=== PATIENT | male | born 1985 | race American Indian/Alaskan Native ===

== ENCOUNTER 2016-09-23 14:10 | Outpatient (CLI) | payer OTHER ==
--- NOTE | 2016-09-23 15:43 | Mammography Report ---
LEFT DIGITAL DIAGNOSTIC MAMMOGRAM with CAD and LEFT BREAST ULTRASOUND: 09/23/16 14:10:00 CLINICAL: Recently diagnosed invasive ductal carcinoma of the right breast and status post recent right mastectomy. COMPARISON:None. FINDINGS: The breast is predominantly fatty with a moderate amount of retroareolar fibroglandular densities. The appearance is very similar to the retroareolar densities of the right breast identified on the recent postbiopsy right mammogram. No architectural distortion or suspicious calcifications. Ultrasound of the left breast (including all four quadrants and the retroareolar area) was performed and demonstrated normal fatty structures and a moderate amount of retroareolar fibroglandular densities with no mass. IMPRESSION: Moderate benign left gynecomastia. BI-RADS CATEGORY: 2 - - Benign RECOMMENDATION: Clinical followup. ACR BI-RADS MAMMOGRAPHIC CODES: 0 = Needs additional imaging evaluation; 1 = Negative; 2 = Benign; 3 = Probably benign; 4 = Suspicious; 5 = Malignant; 6 = Known biopsy-proven malignancy COMMENT: 1. Dense breast tissue, i.e., adenosis, fibrocystic changes, etc., may obscure an underlying neoplasm. 2. Approximately 10% of cancers are not detected with mammography. 3. A negative mammography report should not delay biopsy if a clinically suspicious mass is present. COMMENT: Patient follow-up letters are generated by our [employer] application.
== END 2016-09-23 14:11 | disposition home or self-care (01) ==
LOC: SPVWC 14:10
PROVIDERS: ATTEND Surgery
DX: C50.921 Malignant neoplasm of unspecified site of right male breast (principal); N62 Hypertrophy of breast; Z90.11 Acquired absence of right breast and nipple
CPT/HCPCS: 76641; G0206

== ENCOUNTER 2016-11-26 07:03 | Day surgery (SDC) | payer OTHER ==
[~2016-11-26 07:03] MED LIST: ANCEF/STERILE WATER 2 GM/20 ML IV NR
[2016-11-26] MEDS ORDERED: XYLOCAINE 1% 20 mL ONE (07:20)
[2016-11-26] MEDS ORDERED: MARCAINE 0.25% INFILTRATI ONE (07:20)
[2016-11-26] MEDS ORDERED: DIPRIVAN 10 MG/ML IV ONE ×3 (07:31→10:30)
[2016-11-26] MEDS ORDERED: DILAUDID ONE (07:31)
[2016-11-26] MEDS ORDERED: DECADRON ONE (07:33)
[2016-11-26] MEDS ORDERED: ROBINUL ONE (07:33)
[2016-11-26] MEDS ORDERED: XYLOCAINE MPF 2% ONE (07:33)
[2016-11-26] MEDS ORDERED: ZOFRAN ONE (07:33)
--- NOTE | 2016-11-26 07:48 | Anesthesia Consultation ---
Anesthesia Consult and Med Hx Date of service: 11/26/16 - Airway Anesthetic Teeth Evaluation: Good ROM Head & Neck: Adequate Mental/Hyoid Distance: Adequate Mallampati Class: Class II Intubation Access Assessment: Probably Good - Pulmonary Exam CTA: Yes - Cardiac Exam Cardiac Exam: RRR - Pre-Operative Health Status ASA Pre-Surgery Classification: ASA3 Proposed Anesthetic Plan: General - Pre-Anesthesia Comment Pre-Anesthesia Comments: R breast cancer - Pulmonary Hx Smoking: Yes (1-2 CIAGARS PER WEEK , MARIJUANA 3-4X WEEK.) Hx Asthma: No COPD: No Hx Pneumonia: No Hx Sleep Apnea: No (ISMAEL PRE SCREEN HIGH RISK.) - Cardiovascular System Hx Hypertension: No - Central Nervous System Hx Back Pain: Yes - Endocrine Hx End Stage Renal Disease: No - Other Systems Hx Substance Use: Yes (MARIJUANA 3-4 X PER WEEK) Hx Obesity: Yes
--- NOTE | 2016-11-26 07:48 | Anesthesia Day of Surgery ---
Anesthesia Day of Surgery - Day of Surgery Patient Examined: Yes Patient H&P Reviewed: Yes Patient is NPO: Yes
[2016-11-26] MEDS ORDERED: DILAUDID IV PRN (08:00)
[2016-11-26] MEDS ORDERED: PERCOCET 5/325 PO PRN (08:00)
[2016-11-26] MEDS ORDERED: ZOFRAN IV PRN (08:00)
[2016-11-26] MEDS ORDERED: LACTATED RINGERS 1,000 ML IV SCH (08:00)
[2016-11-26] MEDS ORDERED: PEPCID IV NR (08:00)
[2016-11-26] MEDS ORDERED: VERSED IV NR (08:00)
[2016-11-26] MEDS ORDERED: NACL BACTERIOSTATIC INFILTRATI ONE (08:09)
[2016-11-26] MEDS ORDERED: WATER FOR IRRIG STERILE IR ONE (09:07)
[2016-11-26] MEDS ORDERED: VERSED ONE (09:14)
[2016-11-26] MEDS ORDERED: QUELICIN ONE (09:39)
[2016-11-26] MEDS ORDERED: LACTATED RINGERS 1,000 ML ONE (09:57)
[2016-11-26] MEDS ORDERED: SUBLIMAZE ONE (10:10)
--- NOTE | 2016-11-26 11:00 | Short Stay Summary ---
Short Stay Documentation Date of service: 11/26/16 - History H&P: obtained from office - Allergies and Medications Current Medications: Allergies No Known Allergies Allergy (Verified 05/21/13 23:33) Home Medications Medication Instructions Recorded Confirmed Last Taken Type Tamoxifen Citrate 10 mg PO QDAY 11/21/16 11/21/16 Unknown History HYDROcodone/APAP 5-325 [[place] 1 each PO Q6HR PRN #30 tablet 11/26/16 Unknown Rx 5/325] Active Medications Cefazolin Sodium (Ancef/Sterile Water 2 Gm/20 Ml) 2 gm IV PREOP NR Stop: 11/26/16 23:00 Famotidine (Pepcid) 20 mg IV PREOP NR Stop: 11/26/16 21:00 Last Admin: 11/26/16 08:19 Dose: 20 mg Hydromorphone HCl (Dilaudid) 0.5 mg IV Q10MIN PRN PRN Reason: Pain , Severe (7-10) Stop: 11/26/16 18:00 Lactated Ringer's (Lactated Ringers) 1,000 mls @ 125 mls/hr IV DIRECT JEAN Last Admin: 11/26/16 08:29 Dose: 125 mls/hr Midazolam HCl (Versed) 2 mg IV PREOP NR Stop: 11/26/16 23:59 Last Admin: 11/26/16 08:19 Dose: 2 mg Ondansetron HCl (Zofran) 4 mg IV ONCE PRN PRN Reason: Nausea And Vomiting Stop: 11/26/16 21:00 Oxycodone/Acetaminophen (Percocet 5/325) 1 tab PO ONCE PRN PRN Reason: Pain, Moderate (4-6) Stop: 11/26/16 18:00 - Brief post op/procedure progress note Date of procedure: 11/26/16 Pre-op diagnosis: Right chest wall hematoma Post-op diagnosis: same Procedure: Right chest wall hematoma evacuation and removal of hematoma sac Anesthesia: GETA Findings: Known right chest wall hematoma, 600 cc hematoma evacuated, anterior hematoma sac excision Surgeon: SHAKIRA JESUS Estimated blood loss: other (hematoma evacuation-600 cc) Pathology: list (hematoma sac) Specimen disposition: to lab Condition: stable - Disposition Condition at discharge: Good Disposition: DC-01 TO HOME OR SELFCARE Short Stay Discharge Plan Activity: other (no heavy lifting) Diet: regular Wound: other (keep incision clean and dry; may shower in 24 hours; no baths, pools or lakes) Follow up with: PRIMARY CAREMD [Primary Care Provider] - 7 Days SHAKIRA JESUS MD [Staff Physician] - 7 Days Prescriptions: HYDROcodone/APAP 5-325 [[place] 5/325] 1 each PO Q6HR PRN #30 tablet PRN Reason: Pain
--- NOTE | 2016-11-26 11:02 | Operative Report ---
Operative Report Operative Report: Date of surgery: 11/26/2016 Preoperative diagnosis: Right chest wall hematoma Postoperative diagnosis: Same Procedure: Right chest wall hematoma evacuation and excision of anterior hematoma sac Surgeon: Lou Gaffney M.D. Anesthesia: Gen. Findings: Right chest wall hematoma with 600 mL of hematoma evacuated and excision of anterior hematoma sac wall. Drains: 16 [place] ROMAINE drain Complications: None Estimated blood loss: Minimal Disposition: PACU in good condition Indications for operative procedure: This is a 31-year-old -[place] male with a personal history of right breast cancer. Patient underwent prior right total mastectomy with sentinel lymph node biopsy by outside surgeon. Patient with known right chest wall hematoma that has been present for over 4 months. Recommendations were to proceed with hematoma evacuation given initial attempts in the office with evucation of 300cc of hematoma and no additional aspirate obtained given fibrous constistency. Patient wished to proceed with above procedure. Procedure in detail: The patient was taken to the operating room. He was laid supine and general anesthesia was administered. The right chest wall was prepped and draped in the normal sterile operative fashion. Timeout was performed. Hematoma was palpable. A skin incision was made from prior mastectomy incision with a 15 blade knife with dissection taken down to the subcutaneous tissues. The anterior portion of the hematoma sac was entered with the Bovie cautery with 600 mL of hematoma evacuated. The anterior sac of the hematoma was resected and sent to pathology. Hemostasis was obtained with the Bovie cautery. No suspicious findings were noted within the chest wall. Very fibrosed hematoma sac was present and adherent to the surrounding tissues. A 16 [place] ROMAINE drain was placed within the chest wall cavity. chest wall cavity was irrigated and suctioned. The subcutaneous tissues were approximated and closed using interrupted 3-0 Vicryl and skin closed using a running 4-0 Monocryl and skin affix. He tolerated surgery very well and was awakened from anesthesia without any complications and transferred to PACU in good condition.
--- NOTE | 2016-11-26 11:46 | Post Anesthesia Evaluation ---
- Post Anesthesia Evaluation Patient Participated: Yes Airway Patent: Yes Stable Respiratory Function: Yes Nausea/Vomiting: No Temp > 96.8F: Yes Pain Manageable: Yes Adequeate Hydration: Yes Anesthesia Complications: No
[2016-11-26] MEDS ORDERED: TRANSDERM-SCOP TD ONE (12:30)
[2016-11-26] MEDS ORDERED: REGLAN ONE (12:30)
[2016-11-26] MEDS ORDERED: PROAIR IH ONE (12:30)
[2016-11-26 16:43] VITALS: BP 145/90
== END 2016-11-26 13:05 | disposition home or self-care (01) ==
LOC: OR 07:03
PROVIDERS: ATTEND Surgery
DX: S20.211A Contusion of right front wall of thorax, initial encounter (principal); F17.210 Nicotine dependence, cigarettes, uncomplicated; F12.90 Cannabis use, unspecified, uncomplicated; E66.9 Obesity, unspecified; Z68.36 Body mass index [BMI] 36.0-36.9, adult; Z79.899 Other long term (current) drug therapy; Z98.890 Other specified postprocedural states; Z85.3 Personal history of malignant neoplasm of breast; X58.XXXA Exposure to other specified factors, initial encounter
CPT/HCPCS: 21501; 88302; 88304; J0330; J0690; J1100; J1170; J2250; J2405; J2704; J2765; J3010; J7120